=== PATIENT | male | born 1960 | race Caucasian/White ===

== ENCOUNTER 2019-07-24 17:00 | Emergency (ER) | payer OTHER ==
--- NOTE | 2019-07-24 18:18 | EDM.PDOC ---
ED HPI GENERAL MEDICAL PROBLEM - General Chief Complaint: ENT Problem Stated Complaint: SWOLLEN TONGUE Time Seen by Provider: 07/24/19 18:16 Source of Information: Reports: Patient History Limitations: Reports: No Limitations - History of Present Illness INITIAL COMMENTS - FREE TEXT/NARRATIVE: HISTORY AND PHYSICAL: History of present illness: Patient is a 59-year-old male presents to the ED With complaint of tongue swelling. Patient states it has been going on for over 1 month. He lives in [place], [place] and states he was in the ED there 3 times for this. He has been given epi and steroids without relief of symptoms. Swelling is constant, does not come or go. He reports pain in the tongue, worse on the left side as well as a swollen left lymph node in the neck. He had a tooth pulled 2 weeks ago and he was on amoxicillin for this. He denies difficulty breathing or swallowing. Review of systems: As per history of present illness and below otherwise all systems reviewed and negative. Past medical history: As per history of present illness and as reviewed below otherwise noncontributory. Surgical history: As per history of present illness and as reviewed below otherwise noncontributory. Social history: No reported history of drug or alcohol abuse. Family history: As per history of present illness and as reviewed below otherwise noncontributory. Physical exam: General: Patient sitting comfortably in no acute distress and nontoxic appearing HEENT: Tongue is swollen and slightly erythematous. Tender anterior left cervical lymph node. Atraumatic, normocephalic, pupils reactive, negative for conjunctival pallor or scleral icterus, mucous membranes moist, throat clear, neck supple, nontender, trachea midline. No meningeal signs. Lungs: Clear to auscultation, breath sounds equal bilaterally, chest nontender. Heart: S1S2, regular, negative for clicks, rubs, or overt murmur. Abdomen: Soft, nondistended, nontender. Negative for masses or hepatosplenomegaly. Negative for costovertebral tenderness. No rigidity, rebound , guarding. Pelvis: Stable nontender. Genitourinary: Deferred. Rectal: Deferred. Extremities: Atraumatic, negative for cords or calf pain. Neurovascular unremarkable. Neuro: Awake, alert, oriented. Cranial nerves II through XII unremarkable. Cerebellum unremarkable. Motor and sensory unremarkable throughout. Exam nonfocal. Notes: Diagnostics: CBC, CMP, CT neck with contrast Therapeutics: none Prescriptions: Clindamycin, medrol dose pack Impression: Glossitis, sialoadenitis Plan: Take antibiotic as instructed Follow-up with ENT, please call the number provided to schedule an appointment Return ED as needed as discussed Definitive disposition and diagnosis as appropriate pending reevaluation and review of above. - Related Data Allergies Allergy/AdvReac Type Severity Reaction Status Date / Time No Known Allergies Allergy Verified 07/24/19 17:31 Home Meds: Home Meds Clindamycin HCl 300 mg PO QID 7 Days #28 capsule 07/24/19 [Rx] EPINEPHrine [Epipen] 0.3 mg IM ASDIRECTED 07/24/19 [History] methylPREDNISolone [Medrol] 4 mg PO ASDIRECTED #1 tab.ds.pk 07/24/19 [Rx] Past Medical History HEENT History: Reports: None Cardiovascular History: Reports: Hypertension Respiratory History: Reports: None Gastrointestinal History: Reports: None Genitourinary History: Reports: None Musculoskeletal History: Reports: None Neurological History: Reports: None Psychiatric History: Reports: None Endocrine/Metabolic History: Reports: None Hematologic History: Reports: None Immunologic History: Reports: None Oncologic (Cancer) History: Reports: None Dermatologic History: Reports: None - Infectious Disease History Infectious Disease History: Reports: Chicken Pox - Past Surgical History Head Surgeries/Procedures: Reports: None Other HEENT Surgeries/Procedures: Hearing aid bilateral Social & Family History - Family History Family Medical History: Noncontributory - Tobacco Use Smoking Status *Q: Current Every Day Smoker Years of Tobacco use: 45 Packs/Tins Daily: 1 - Caffeine Use Caffeine Use: Reports: Coffee - Alcohol Use Days Per Week of Alcohol Use: 1 Number of Drinks Per Day: 1 Total Drinks Per Week: 1 - Recreational Drug Use Recreational Drug Use: No ED ROS ENT - Review of Systems Review Of Systems: Comprehensive ROS is negative, except as noted in HPI. ED EXAM, ENT - Physical Exam Exam: See Below (see dictation) Course - Vital Signs Last Recorded V/S: Last Vital Signs Temp 96.9 F 07/24/19 17:30 Pulse 75 07/24/19 20:00 Resp 18 07/24/19 20:00 BP 165/111 H 07/24/19 20:00 Pulse Ox 97 07/24/19 20:00 - Orders/Labs/Meds Labs: Laboratory Tests 07/24/19 07/24/19 Range/Units 18:09 18:09 WBC 8.35 (4.0-11.0) K/uL RBC 4.82 (4.50-5.90) M/uL Hgb 15.2 (13.0-17.0) g/dL Hct 43.9 (38.0-50.0) % MCV 91.1 (80.0-98.0) fL MCH 31.5 (27.0-32.0) pg MCHC 34.6 (31.0-37.0) g/dL RDW Std Deviation 43.3 (28.0-62.0) fl RDW Coeff of Marcell 13 (11.0-15.0) % Plt Count 240 (150-400) K/uL MPV 9.80 (7.40-12.00) fL Neut % (Auto) 67.9 (48.0-80.0) % Lymph % (Auto) 23.8 (16.0-40.0) % [place] % (Auto) 6.8 (0.0-15.0) % Eos % (Auto) 1.3 (0.0-7.0) % Baso % (Auto) 0.2 (0.0-1.5) % Neut # (Auto) 5.7 (1.4-5.7) K/uL Lymph # (Auto) 2.0 (0.6-2.4) K/uL [place] # (Auto) 0.6 (0.0-0.8) K/uL Eos # (Auto) 0.1 (0.0-0.7) K/uL Baso # (Auto) 0.0 (0.0-0.1) K/uL Nucleated RBC % 0.0 /100WBC Nucleated RBCs # 0 K/uL Sodium 139 (136-148) mmol/L Potassium 3.6 (3.5-5.1) mmol/L Chloride 104 (98-107) mmol/L Carbon Dioxide 28.1 (21.0-32.0) mmol/L BUN 19 H (7.0-18.0) mg/dL Creatinine 1.0 (0.8-1.3) mg/dL Est Cr Clr Drug Dosing 84.71 mL/min Estimated GFR (MDRD) > 60.0 ml/min Glucose 79 (74-106) mg/dL Calcium 9.1 (8.5-10.1) mg/dL Total Bilirubin 0.3 (0.2-1.0) mg/dL AST 20 (15-37) IU/L ALT 36 (14-63) IU/L Alkaline Phosphatase 61 (46-116) U/L Total Protein 6.8 (6.4-8.2) g/dL Albumin 3.5 (3.4-5.0) g/dL Globulin 3.3 (2.6-4.0) g/dL Albumin/Globulin Ratio 1.1 (0.9-1.6) Meds: Medications Discontinued Medications Generic Name Dose Route Start Last Admin Trade Name Nicole PRN Reason Stop Dose Admin Iopamidol 80 ml 07/24/19 19:47 07/24/19 19:49 Isovue-370 (76%) IVPUSH 07/24/19 19:48 80 ml ONETIME STA Administration Departure - Departure Time of Disposition: 21:02 Disposition: Home, Self-Care 01 Condition: Good Clinical Impression: Glossitis, Sialoadenitis - Discharge Information Prescriptions: Clindamycin HCl 300 mg PO QID 7 Days #28 capsule methylPREDNISolone [Medrol] 4 mg PO ASDIRECTED #1 tab.ds.pk Instructions: Glossitis Referrals: PCP,Not In Area [Primary Care Provider] - Forms: ED Department Discharge Additional Instructions: The following information is given to patients seen in the emergency department who are being discharged to home. This information is to outline your options for follow-up care. We provide all patients seen in our emergency department with a follow-up referral. The need for follow-up, as well as the timing and circumstances, are variable depending upon the specifics of your emergency department visit. If you don't have a primary care physician on staff, we will provide you with a referral. We always advise you to contact your personal physician following an emergency department visit to inform them of the circumstance of the visit and for follow-up with them and/or the need for any referrals to a consulting specialist. The emergency department will also refer you to a specialist when appropriate. This referral assures that you have the opportunity for follow-up care with a specialist. All of these measure are taken in an effort to provide you with optimal care, which includes your follow-up. Under all circumstances we always encourage you to contact your private physician who remains a resource for coordinating your care. When calling for follow-up care, please make the office aware that this follow-up is from your recent emergency room visit. If for any reason you are refused follow-up, please contact the [facility] Emergency Department at and asked to speak to the emergency department charge nurse. [facility] ENT - Dr. Clayton [address] [place] [address] Take antibiotic as instructed Follow-up with ENT, please call the number provided to schedule an appointment Return ED as needed as discussed Sepsis Event Note - Evaluation Sepsis Screening Result: No Definite Risk - Focused Exam Vital Signs: Vital Signs Temp Pulse Resp BP Pulse Ox 07/24/19 20:00 75 18 165/111 H 97 07/24/19 17:30 96.9 F 78 18 142/99 H 98 Date Exam was Performed: 07/24/19 Time Exam was Performed: 21:48
[2019-07-24 18:33] LABS: BLOOD UREA NITROGEN,BUN 19 mg/dL (7.0-18.0); CARBON DIOXIDE,CO2 28.1 mmol/L (21.0-32.0); CHLORIDE,CL 104 mmol/L (98-107); GLUCOSE RANDOM 79 mg/dL (74-106); POTASSIUM,K 3.6 mmol/L (3.5-5.1); SODIUM,NA 139 mmol/L (136-148)
[2019-07-24] MEDS ORDERED: Iopamidol 755 Mg/ML 100 ML Bottle IVPUSH STA (19:47)
--- NOTE | 2019-07-24 20:34 | CT ---
CT neck Technique: Multiple axial sections through the neck were obtained from above the external auditory canals inferiorly to the lung apices. Intravenous contrast was utilized. Findings: Low density is identified at the base of the tongue. Tongue also appears swollen. This low density can be seen normally but findings appear to be slightly more prominent than usually seen but also appear to be symmetric and uncertain if this is due to edema from infection or represents prominent normal variant. There is low density within the left submandibular gland most likely representing sialadenitis. Several slightly prominent lymph nodes are seen within the neck believed to be on an inflammatory basis. Parotid salivary glands appear unremarkable. Mild mucosal thickening seen inferiorly within both maxillary sinuses. Mastoid sinuses are clear. Epiglottis shows no thickening. Prevertebral soft tissues are normal. Bone window settings shows mild degenerative change scattered within the cervical spine with no acute osseous finding being seen. Impression: 1. Swelling within the tongue. 2. Low density at the base of the tongue which can be seen normally although findings on current study appear to be more prominent than usually seen. These findings appear symmetric which suggest the possibility of normal variant although difficult to exclude mild diffuse edema. No definite abscess is seen at this time. Treatment with antibiotics could be considered and if patient's symptoms do not improve, follow-up CT study could then be considered. 3. Probable sialadenitis within the left submandibular salivary gland. 4. Slightly prominent lymph nodes which are likely on an inflammatory basis. Diagnostic code #3 This report was dictated in MDT
== END 2019-07-24 21:15 | disposition home or self-care (01) ==
LOC: MW.ED 17:00
DX: K14.0 Glossitis (principal); K11.20 Sialoadenitis, unspecified; I10 Essential (primary) hypertension; F17.210 Nicotine dependence, cigarettes, uncomplicated
CPT/HCPCS: 70491; 80053; 85025; 99284; Q9967; 99283

== ENCOUNTER 2019-09-05 09:10 | Emergency (ER) | payer OTHER ==
[2019-09-05] MEDS ORDERED: Naproxen 500 MG Tab PO ONE (09:46)
--- NOTE | 2019-09-05 09:51 | EDM.PDOC ---
ED HPI GENERAL MEDICAL PROBLEM - General Chief Complaint: Upper Extremity Injury/Pain Stated Complaint: LT SHOULDER PAIN Time Seen by Provider: 09/05/19 09:25 Source of Information: Reports: Patient History Limitations: Reports: No Limitations - History of Present Illness INITIAL COMMENTS - FREE TEXT/NARRATIVE: 59-year-old male with history of oropharyngeal cancer currently undergoing chemotherapy and radiation therapy presents with left shoulder pain for 3 days. Pain is constant, exacerbated with movement and shoulder abduction. He denies any injury or trauma, fever, chills, chest pain, shortness of breath, neck pain , back pain, elbow pain. His last radiation therapy was yesterday, his last chemotherapy was on Tuesday. ROS: A 10-point review of systems, other than pertinent positives and negatives as stated per HPI, is otherwise negative PHYSICAL EXAM General: AOx4, GCS = 15, No distress HEENT: dry mucous membrane Neck: supple, no meningismus, no Kernig or Brudzinski Cardiac: S1S2 RRR Respiratory: CTAB, no crackles or rales, no wheezing Abdomen: Soft, nontender, no rebound or guarding, nondistended, no pulsatile mass. Back: nontender Musculoskeletal: NVI distally, no deformity, tenderness to left shoulder with abduction, external rotation. Positive liftoff sign. No tenderness or swelling or induration to left humerus, no signs of compartment syndrome. Neuro: No focal deficits, CN 2 - 12 WNL. MEDICAL DECISION MAKING: I reviewed the patients past medical records, lab and radiographic findings. I discussed the case with family members. My differential diagnosis included: Tendinitis, rotator cuff injury, strain, Location: Reports: Upper Extremity, Left left arm Pain Score (Numeric/FACES): 9 - Related Data Allergies Allergy/AdvReac Type Severity Reaction Status Date / Time No Known Allergies Allergy Verified 09/05/19 09:25 Home Meds: Home Meds Clindamycin HCl 300 mg PO QID 7 Days #28 capsule 07/24/19 [Rx] EPINEPHrine [Epipen] 0.3 mg IM ASDIRECTED 07/24/19 [History] methylPREDNISolone [Medrol] 4 mg PO ASDIRECTED #1 tab.ds.pk 07/24/19 [Rx] Naproxen [Naprosyn] 500 mg PO Q12HR #10 tab 09/05/19 [Rx] Past Medical History HEENT History: Reports: None Cardiovascular History: Reports: Hypertension Respiratory History: Reports: None Gastrointestinal History: Reports: None Genitourinary History: Reports: None Musculoskeletal History: Reports: None Neurological History: Reports: None Psychiatric History: Reports: None Endocrine/Metabolic History: Reports: None Hematologic History: Reports: None Immunologic History: Reports: None Oncologic (Cancer) History: Reports: Other (See Below) Other Oncologic History: LYMPH NODES AND TOUNGE Dermatologic History: Reports: None - Infectious Disease History Infectious Disease History: Reports: Chicken Pox - Past Surgical History Head Surgeries/Procedures: Reports: None Other HEENT Surgeries/Procedures: Hearing aid bilateral Social & Family History - Family History Family Medical History: Noncontributory - Tobacco Use Smoking Status *Q: Former Smoker Used Tobacco, but Quit: Yes Month/Year Tobacco Last Used: 08/27/2019 - Caffeine Use Caffeine Use: Reports: Coffee Review of Systems - Review of Systems Review Of Systems: See Below (see dictaion) ED EXAM, GENERAL - Physical Exam Exam: See Below (see dictation) Course - Vital Signs Last Recorded V/S: Last Vital Signs Temp 97.3 F 09/05/19 09:22 Pulse 77 09/05/19 09:22 Resp 16 09/05/19 09:22 BP 110/71 09/05/19 09:22 Pulse Ox 97 09/05/19 09:22 - Orders/Labs/Meds Orders: Active Orders 24 hr Category Date Time Status Naproxen [Naprosyn] Med 09/05/19 09:46 Once 500 mg PO ONETIME ONE DME for Discharge [COMM] Stat Oth 09/05/19 09:45 Ordered - Re-Assessments/Exams Free Text/Narrative Re-Assessment/Exam: 09/05/19 09:48 After treatments and a prolonged observation period in the ER, the patient improved clinically and is stable for discharge. He was placed in a sling and is NVI distally. I performed a repeat examination and the patient has not demonstrated any new abnormal findings. Patient exhibits normal vital signs and has exhibited a normal gait. I advised the patient to return to the ER for reevaluation if symptoms worsened, and to follow up with their PCP within 2-3 days. Departure - Departure Time of Disposition: 09:49 Disposition: Home, Self-Care 01 Condition: Good Clinical Impression: Rotator cuff tendonitis - Discharge Information *PRESCRIPTION DRUG MONITORING PROGRAM REVIEWED*: Not Applicable *COPY OF PRESCRIPTION DRUG MONITORING REPORT IN PATIENT MUSA: Not Applicable Prescriptions: Naproxen [Naprosyn] 500 mg PO Q12HR #10 tab Referrals: PCP,Not In Area [Primary Care Provider] - Additional Instructions: The following information is given to patients seen in the emergency department who are being discharged to home. This information is to outline your options for follow-up care. We provide all patients seen in our emergency department with a follow-up referral. The need for follow-up, as well as the timing and circumstances, are variable depending upon the specifics of your emergency department visit. If you don't have a primary care physician on staff, we will provide you with a referral. We always advise you to contact your personal physician following an emergency department visit to inform them of the circumstance of the visit and for follow-up with them and/or the need for any referrals to a consulting specialist. The emergency department will also refer you to a specialist when appropriate. This referral assures that you have the opportunity for follow-up care with a specialist. All of these measure are taken in an effort to provide you with optimal care, which includes your follow-up. Under all circumstances we always encourage you to contact your private physician who remains a resource for coordinating your care. When calling for follow-up care, please make the office aware that this follow-up is from your recent emergency room visit. If for any reason you are refused follow-up, please contact the [facility] Emergency Department at and asked to speak to the emergency department charge nurse. If you do not have a primary care doctor, please follow up with the clinics below within 3-5 days. [facility] - Primary Care [address] [place] [id number] [facility] - [facility] Professional [facility] [address] [place] [address], [address] [place] [address] Sepsis Event Note (ED) - Evaluation Sepsis Screening Result: No Definite Risk - Focused Exam Vital Signs: Vital Signs Temp Pulse Resp BP Pulse Ox 09/05/19 09:22 97.3 F 77 16 110/71 97 - My Orders Last 24 Hours: My Active Orders 09/05/19 09:45 DME for Discharge [COMM] Stat 09/05/19 09:46 Naproxen [Naprosyn] 500 mg PO ONETIME ONE - Assessment/Plan Last 24 Hours: My Active Orders 09/05/19 09:45 DME for Discharge [COMM] Stat 09/05/19 09:46 Naproxen [Naprosyn] 500 mg PO ONETIME ONE
== END 2019-09-05 10:11 | disposition home or self-care (01) ==
LOC: MW.ED 09:10
DX: M75.102 Unspecified rotator cuff tear or rupture of left shoulder, not specified as traumatic (principal); I10 Essential (primary) hypertension; Z87.891 Personal history of nicotine dependence
CPT/HCPCS: 99283; A9270